=== PATIENT | female | born 1965 | race Caucasian/White ===

== ENCOUNTER 2017-03-03 10:55 | Emergency (ER) | payer MEDICAID ==
[~2017-03-03] VITALS: Ht 175.3 cm; Wt 72.8 kg
[2017-03-03 10:57] VITALS: BP 147/94
== END 2017-03-03 12:34 | disposition home or self-care (01) ==
LOC: ED 12:06
DX: F41.1 Generalized anxiety disorder (principal); Z88.6 Allergy status to analgesic agent; F32.9 Major depressive disorder, single episode, unspecified
CPT/HCPCS: 99284

== ENCOUNTER 2019-06-14 08:23 | Emergency (ER) | payer MEDICAID ==
[~2019-06-14] VITALS: Ht 175.3 cm; Wt 71.1 kg
[2019-06-14 08:26] VITALS: BP 133/77
--- NOTE | 2019-06-14 08:47 | NUR ---
First contact with pt. Pt states, "I am so anxious I can not sleep. My meds are not working." Pt denies SI/HI. Pt denies ETOH use. PT rocking back and forth sitting on gurney. ED resident MD at bedside. Family at bedside. Pt states nausea. Call light within reach. Bedrail up x 1.
[2019-06-14] MEDS ORDERED: LORazepam 2 MG/ML, 1ML IVPush ONE (09:00)
[2019-06-14] MEDS ORDERED: LORazepam 2 MG/ML, 1ML ONE (09:21)
[2019-06-14] MEDS ORDERED: ONDANSETRON 2MG/ML, 2ML ONE (09:21)
--- NOTE | 2019-06-14 09:32 | NUR ---
Provided medicaitons per [facility]AR. NIBP cuff and pulse ox monitor on. Bedrail up and call light within reach.
[2019-06-14 09:43] LABS: ALANINE AMINOTRANSFERASE 48 U/L (12-78); ALBUMIN 3.9 g/dL (3.4-5.0); ANION GAP 6 mmol/L (5-15); CALCIUM 9.1 mg/dL (8.5-10.1); CHLORIDE 107 mmol/L (98-107); CREATININE 0.87 mg/dL (0.55-1.02)
[2019-06-14 09:47] LABS: BASOPHILS # (AUTO) 0.06 x10^3/uL (0-0.1); BASOPHILS % (AUTO) 1 % (0-1); EOSINOPHILS # (AUTO) 0.04 x10^3/uL (0-0.4); EOSINOPHILS % (AUTO) 1 % (1-7); LYMPHOCYTES # (AUTO) 2.38 x10^3/uL (1-3.4); LYMPHOCYTES % (AUTO) 30 % (22-44); MD NO; MEAN CORPUSCULAR HEMOGLOBIN 32.2 pg (27.0-34.8); MEAN CORPUSCULAR HGB CONC 33.3 g/dL (32.4-35.8); MEAN CORPUSCULAR VOLUME 96.7 fL (80-100); MEAN PLATELET VOLUME 8.6 fL (7.4-10.4); MONOCYTES # (AUTO) 0.49 x10^3/uL (0.2-0.8); MONOCYTES % (AUTO) 6 % (2-9); NEUTROPHILS # (AUTO) 4.97 x10^3/uL (1.8-6.8); NEUTROPHILS % (AUTO) 63 % (42-75); PLATELET COUNT 316 x10^3/uL (130-400); RED BLOOD COUNT 4.31 x10^6/uL (3.82-5.3); RED CELL DISTRIBUTION WIDTH 14.3 % (9.6-15.2)
[2019-06-14 09:53] LABS: ALKALINE PHOSPHATASE 95 U/L (45-117); BILIRUBIN,TOTAL 0.4 mg/dL (0.2-1.0); TOTAL PROTEIN 7.6 g/dL (6.4-8.2)
--- NOTE | 2019-06-14 09:58 | NUR ---
Pt resting on gurney on right lateral side with eyes closed. Pt has unlabored respirations with even chest rise and fall. PIV fluids infusing per EMAR. NADN. No needs expressed at this time.
[2019-06-14] MEDS ORDERED: ONDANSETRON 2MG/ML, 2ML IVPush ONE (10:00)
[2019-06-14] MEDS ORDERED: SODIUM CHLORIDE 0.9% 1,000ML IVBOLUS ONE (10:00)
== END 2019-06-14 10:54 | disposition home or self-care (01) ==
LOC: ED 08:52
DX: F41.1 Generalized anxiety disorder (principal); R11.2 Nausea with vomiting, unspecified; F17.210 Nicotine dependence, cigarettes, uncomplicated
CPT/HCPCS: 36415; 80053; 84443; 85025; 96361; 96374; 96375; 99283; J2060; J2405; J7030